=== PATIENT | female | born 1990 ===

== ENCOUNTER 2018-05-03 12:46 | Emergency (ER) | payer BC ==
[2018-05-03 13:23] VITALS: RESP 18; TEMP 97.9; O2SAT 100
--- NOTE | 2018-05-03 14:29 | RAD ---
HISTORY: cough COMPARISON: None available TECHNIQUE: Chest PA and lateral FINDINGS: LUNGS: No focal consolidation. Please note that chest x-ray has limited sensitivity for the detection of pulmonary masses. PLEURA: No significant pleural effusion identified. No definite pneumothorax . CARDIOVASCULAR: Heart size appears within normal limits. No atherosclerotic calcification present. OSSEOUS STRUCTURES: No acute osseous abnormality identified. VISUALIZED UPPER ABDOMEN: Unremarkable. OTHER FINDINGS: None. IMPRESSION: No focal consolidation.
--- NOTE | 2018-05-03 14:38 | C.PDOC ---
History Of Present Illness 27 y/o female, with PMHx of anxiety, comes in complaining of a sharp right-sided chest pain x 1 week that worsens with movement. States she took 1 tylenol that day with no relief and tried stretching which did not help. Patient states pain is 6/10 and is concentrated to the pectoral muscle area. Also complains of some nausea and palpitations. Patient reports she was hospitalized in 2016 with gallstones but was not removed. She also had duodenal switch done. Patient denies fever, chills, vomiting, SOB, or cough. Chief Complaint (Nursing): Chest Pain History Per: Patient History/Exam Limitations: no limitations Onset/Duration Of Symptoms: Days Current Symptoms Are (Timing): Still Present Past Medical History Reviewed: Historical Data, Nursing Documentation, Vital Signs Vital Signs: Last Vital Signs Temp 97.9 F 05/03/18 13:20 Pulse 73 05/03/18 13:20 Resp 18 05/03/18 13:20 BP 128/79 05/03/18 13:20 Pulse Ox 100 05/03/18 13:20 Family History: States: No Known Family Hx - Social History Hx Alcohol Use: No Hx Substance Use: No - Immunization History Hx Tetanus Toxoid Vaccination: No Hx Influenza Vaccination: No Hx Pneumococcal Vaccination: No Review Of Systems Except As Marked, All Systems Reviewed And Found Negative. Constitutional: Negative for: Fever, Chills Cardiovascular: Positive for: Chest Pain (right sided), Palpitations Respiratory: Negative for: Cough, Shortness of Breath Gastrointestinal: Positive for: Nausea. Negative for: Vomiting Physical Exam - Physical Exam Appears: Non-toxic, No Acute Distress Skin: Warm, Dry Head: Atraumatic, Normacephalic Eye(s): bilateral: Normal Inspection Oral Mucosa: Moist Neck: Supple Chest: Tenderness (to palpation) Cardiovascular: Rhythm Regular, No Murmur Respiratory: Normal Breath Sounds, No Rales, No Rhonchi, No Wheezing Gastrointestinal/Abdominal: Soft, No Tenderness Extremity: Bilateral: Atraumatic, Normal Color And Temperature, Normal ROM Neurological/Psych: Oriented x3, Normal Speech ED Course And Treatment ECG: Interpreted By Me, Viewed By Me ECG Rhythm: Sinus Rhythm (Normal) Interpretation Of ECG: Normal intervals. Normal axis. Isolated T wave inversion lead III. Rate From EC O2 Sat by Pulse Oximetry: 100 (RA) Pulse Ox Interpretation: Normal Medical Decision Making Medical Decision Making: prelmin. reading of cxr - nad. pain is worst with movement and deep breath. Disposition Counseled Patient/Family Regarding: Studies Performed, Diagnosis, Need For Followup, Rx Given - Disposition Referrals: Bhaskar Hart MD [Staff Provider] - Disposition: HOME/ ROUTINE Disposition Time: 14:36 Condition: STABLE Additional Instructions: follow up with your doctor within 2 days call to make an appointment take tylenol as needed for pain return to ER if symptoms worsens or progress Instructions: Costochondritis (DC) Forms: General Discharge Instructions, [facility] (Urdu), Work Excuse - Clinical Impression Clinical Impression: Chest discomfort, Chest wall pain - Scribe Statement The provider has reviewed the documentation as recorded by the Nicholasibrhona Burrows Provider Attestation: All medical record entries made by the Nicholasibrhona were at my direction and personally dictated by me. I have reviewed the chart and agree that the record accurately reflects my personal performance of the history, physical exam, medical decision making, and the department course for this patient. I have also personally directed, reviewed, and agree with the discharge instructions and disposition.
[2018-05-03 14:52] VITALS: BP 114/72; PULSE 77
--- NOTE | 2018-05-04 12:00 | CARD ---
APPROVED REPORT Date of service: 05/03/2018 EKG Measurement Heart [id number] MD [id number] <Conclusion> Normal sinus rhythm Normal ECG
== END 2018-05-03 15:02 | disposition home or self-care (01) ==
LOC: C.ER 12:46
DX: R07.89 Other chest pain (principal)